=== PATIENT | female | born 1950 | race Caucasian/White ===

== ENCOUNTER → 2019-06-30 | Outpatient (CLI) | payer MEDICARE ==
[~2019-06-30] MED LIST: OMNIPAQUE 350 MG/ML, 100ML BOTTLE ONE
== END | disposition home or self-care (01) ==
LOC: CFH 10:31
PROVIDERS: ATTEND Internal Medicine Cardiovascular Disease
DX: I71.2 Thoracic aortic aneurysm, without rupture (principal); J98.4 Other disorders of lung
CPT/HCPCS: 71275; Q9967

== ENCOUNTER 2020-01-26 05:39 | Inpatient (IN) | payer MEDICARE ==
[2020-01-23 09:19] VITALS: BP 161/69
[2020-01-23 10:16] LABS: MEAN CORPUSCULAR HEMOGLOBIN 31.9 pg (27.0-34.8); MEAN CORPUSCULAR HGB CONC 32.8 g/dL (32.4-35.8); MEAN PLATELET VOLUME 7.6 fL (7.4-10.4); PLATELET COUNT 195 x10^3/uL (130-400); RED BLOOD COUNT 4.54 x10^6/uL (3.82-5.3); RED CELL DISTRIBUTION WIDTH 14.4 % (9.6-15.2)
[2020-01-23 10:22] LABS: INTERNATIONAL NORMALIZED RATIO 0.97 (0.93-1.1)
[2020-01-23 10:23] LABS: MICROSCOPIC NOT IND
[2020-01-23 10:23] LABS: ALANINE AMINOTRANSFERASE 15 U/L (12-78); ALBUMIN 3.9 g/dL (3.4-5.0); ANION GAP 5 mmol/L (5-15); CALCIUM 9.5 mg/dL (8.5-10.1); CHLORIDE 110 mmol/L (98-107)
[2020-01-23 10:26] LABS: ALKALINE PHOSPHATASE 73 U/L (45-117); BILIRUBIN,TOTAL 0.4 mg/dL (0.2-1.0); TOTAL PROTEIN 7.5 g/dL (6.4-8.2)
[2020-01-23 10:38] LABS: BASOPHILS % (AUTO) 0 % (0-1); EOSINOPHILS # (AUTO) 0.22 x10^3/uL (0-0.4); EOSINOPHILS % (AUTO) 4 % (1-7); LYMPHOCYTES # (AUTO) 0.52 x10^3/uL (1-3.4); LYMPHOCYTES % (AUTO) 9 % (22-44); MD SCAN; MONOCYTES # (AUTO) 0.29 x10^3/uL (0.2-0.8); MONOCYTES % (AUTO) 5 % (2-9); NEUTROPHILS # (AUTO) 4.93 x10^3/uL (1.8-6.8); NEUTROPHILS % (AUTO) 83 % (42-75)
[~2020-01-26] VITALS: Ht 162.6 cm; Wt 57.0 kg
[~2020-01-26 05:39] MED LIST changes: +ACET-1600 PO; +ACET-458 PO; +ALEN70TA6 PO; +HYDR200T72 PO; -OMNIPAQUE 350 MG/ML, 100ML BOTTLE ONE
[2020-01-26] MEDS ORDERED: LACTATED RINGERS 1,000 ML IV SCH (06:43)
[2020-01-26] MEDS ORDERED: CHLORHEXIDINE 15 ML UDC MM ONE (07:00)
[2020-01-26] MEDS ORDERED: BUPIVACAINE/PF 0.25% ONE (07:01)
[2020-01-26] MEDS ORDERED: INDIGO CARMINE 0.8%, 5ML ONE (07:02)
[2020-01-26] MEDS ORDERED: EPINEPHRINE 1 MG/ML, 1ML ONE (07:02)
[2020-01-26] MEDS ORDERED: MIDAZOLAM 1 MG/ML, 2ML ONE (07:23)
[2020-01-26] MEDS ORDERED: FENTANYL PF 250 MCG/5ML ONE (07:23)
[2020-01-26] MEDS ORDERED: MEPERIDINE/PF 25MG/0.5ML IVPush PRN (07:30)
[2020-01-26] MEDS ORDERED: DIPHENHYDRAMINE 50 MG/ML, 1ML IVPush PRN (07:30)
[2020-01-26] MEDS ORDERED: hydrALAzine 20 MG/ML, 1ML IV PRN (07:30)
[2020-01-26] MEDS ORDERED: LABETALOL 5MG/ML, 20ML IV PRN (07:30)
[2020-01-26] MEDS ORDERED: HYDROcodone/APAP 7.5-325MG/15ML UDC PO PRN (07:30)
[2020-01-26] MEDS ORDERED: HYDROmorphone 1 MG/ML, 1ML INJ IVPush PRN (07:30)
[2020-01-26] MEDS ORDERED: PROMETHAZINE 25 MG/ML, 1ML IVPush PRN (07:30)
[2020-01-26] MEDS ORDERED: HALOPERIDOL 5 MG/ML IV PRN (07:30)
[2020-01-26] MEDS ORDERED: BUPIVACAINE/PF-EPI 0.25% 1:200K INFIL ONE (08:10)
[2020-01-26] MEDS ORDERED: ONDANSETRON 2MG/ML, 2ML ONE (09:15)
[2020-01-26] MEDS ORDERED: CEFAZOLIN 1,000 MG ONE (09:15)
[2020-01-26] MEDS ORDERED: GLYCOPYRROLATE 0.2MG/1ML, 5ML ONE (09:15)
[2020-01-26] MEDS ORDERED: NEOSTIGMINE 1 MG/ML, 10ML ONE (09:15)
[2020-01-26] MEDS ORDERED: PROPOFOL 10 MG/ML, 20ML ONE (09:15)
[2020-01-26] MEDS ORDERED: DEXAMETHASONE 4 MG/ML, 1ML ONE (09:15)
[2020-01-26] MEDS ORDERED: SUCCINYLCHOLINE 20 MG/ML, 10ML ONE (09:15)
[2020-01-26] MEDS ORDERED: FENTANYL PF 100 MCG/2ML ONE ×2 (09:57→10:18)
[2020-01-26] MEDS: FENTANYL PF 100 MCG/2ML IV PRN ×4 (10:00→10:37)
[2020-01-26] MEDS ORDERED: HYDROcodone/APAP 7.5-325MG/15ML UDC ONE (10:18)
[2020-01-26 11:21] VITALS: BP 111/64
[2020-01-26] MEDS ORDERED: TEMAZEPAM 15 MG CAPSULE PO PRN (11:30)
[2020-01-26] MEDS ORDERED: morphine SULFATE 10 MG/ML, 1ML IV PRN (11:30)
[2020-01-26 13:02] VITALS: BP 104/58
[2020-01-26] MEDS: SODIUM CHLORIDE 0.9% 1,000 ML IV SCH (16:01)
[2020-01-26] MEDS: CEFAZOLIN PMX 1GM/50ML 50 ML IVPB SCH (16:08)
[2020-01-26] MEDS: HYDROcodone/APAP 5/325 TABLET PO PRN (16:41)
[2020-01-26 19:18] VITALS: BP 114/69
[2020-01-26] MEDS: ONDANSETRON 2MG/ML, 2ML IV PRN (22:14)
[2020-01-27] MEDS: CEFAZOLIN PMX 1GM/50ML 50 ML IVPB SCH (00:13)
[2020-01-27 00:50] VITALS: BP 118/66
[2020-01-27 04:06] VITALS: BP 114/64
[2020-01-27] MEDS: SODIUM CHLORIDE 0.9% 1,000 ML IV SCH ×2 (05:43→20:40)
[2020-01-27 05:58] LABS: ANION GAP 6 mmol/L (5-15); CALCIUM 8.3 mg/dL (8.5-10.1); CHLORIDE 109 mmol/L (98-107); CREATININE 1.05 mg/dL (0.55-1.02)
[2020-01-27 06:25] VITALS: BP 122/56
[2020-01-27] MEDS: HYDROXYCHLOROQUINE 200 MG TABLET PO SCH (07:52)
[2020-01-27] MEDS: ENOXAPARIN 40 MG/0.4 ML SQ SCH (07:54)
[2020-01-27] MEDS: ONDANSETRON 2MG/ML, 2ML IV PRN ×2 (07:56→14:23)
[2020-01-27] MEDS: HYDROcodone/APAP 5/325 TABLET PO PRN (08:34)
[2020-01-27 11:57] VITALS: BP 123/69
[2020-01-27 18:18] VITALS: BP 129/62
[2020-01-28 00:28] VITALS: BP 121/75
[2020-01-28 06:54] VITALS: BP 137/79
[2020-01-28] MEDS: ENOXAPARIN 40 MG/0.4 ML SQ SCH (08:00)
[2020-01-28] MEDS: HYDROXYCHLOROQUINE 200 MG TABLET PO SCH (08:36)
[2020-01-28] MEDS: SODIUM CHLORIDE 0.9% 1,000 ML IV SCH (08:36)
[2020-01-28] MEDS ORDERED: HYDR-3240 PO (09:48)
[2020-02-02] MEDS ORDERED: ALENDRONATE 70 MG TABLET PO SCH (06:30)
== END 2020-01-28 11:28 | disposition home or self-care (01) | DRG 661 ==
LOC: OUT 05:39 → 4NW 11:18 → DCLOUNGE 01-28 11:20
PROVIDERS: ADMIT Urology; ATTEND Urology
PROC: 8E0W4CZ Robotic Assisted Procedure of Trunk Region, Percutaneous Endoscopic Approach (ICD-10-PCS; 2020-01-26)
PROC: 3E0T3BZ Introduction of Anesthetic Agent into Peripheral Nerves and Plexi, Percutaneous Approach (ICD-10-PCS; 2020-01-26)
PROC: 07BD4ZX Excision of Aortic Lymphatic, Percutaneous Endoscopic Approach, Diagnostic (ICD-10-PCS; 2020-01-26)
PROC: 0TT04ZZ Resection of Right Kidney, Percutaneous Endoscopic Approach (ICD-10-PCS; principal; 2020-01-26 07:30)
DX: N28.89 Other specified disorders of kidney and ureter (principal); Z20.828 Contact with and (suspected) exposure to other viral communicable diseases; Z88.1 Allergy status to other antibiotic agents; Z88.8 Allergy status to other drugs, medicaments and biological substances
CPT/HCPCS: 36415; 80048; 80053; 81003; 85025; 85610; 85730; 86850; 86870; 86900; 86923; 87086; 87635; 88305; 88307; 93005; G0378; J0171; J0690; J1100; J1650; J2250; J2405; J2704; J2710; J3010; J3490; C1760; J0330; J2270; J7030; J7120